=== PATIENT | male | born 1965 | race Caucasian/White ===

== ENCOUNTER → 2019-05-07 | Outpatient (CLI) | payer BC ==
--- NOTE | 2019-05-08 09:40 | KCIC ---
MR of the right shoulder HISTORY: Right shoulder pain chronically, worse for the last 6 months. TECHNIQUE: Routine multiplanar sequences are obtained. FINDINGS: The acromioclavicular joint is mildly degenerative. Small undersurface osteophytes. No evidence of a rotator cuff tear. No significant subdeltoid bursal effusion. Mild rotator cuff tendinosis. Mild glenohumeral joint DJD. Distortion of the posteroinferior through posterosuperior labrum with some heterogeneous signal compatible with degeneration/degenerative tearing. The biceps tendon demonstrates mild tendinosis but is intact. No acute fracture. No aggressive bone destruction. No acute soft tissue abnormality. IMPRESSION: 1. Rotator cuff tendinosis without evidence of a tear. 2. 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 Electronically signed by: Nasir Calderon MD (05/08/2019 9:37 AM) [id number]
== END | disposition home or self-care (01) ==
LOC: KCIC MRI 17:18
PROVIDERS: ATTEND Orthopaedic Surgery
DX: S43.491A Other sprain of right shoulder joint, initial encounter (principal); M25.711 Osteophyte, right shoulder; M19.011 Primary osteoarthritis, right shoulder; X58.XXXA Exposure to other specified factors, initial encounter; Y93.89 Activity, other specified; Y92.89 Other specified places as the place of occurrence of the external cause; Y99.8 Other external cause status
CPT/HCPCS: 73221